=== PATIENT | male | born 1980 | race African-American/Black ===

== ENCOUNTER → 2017-04-23 | Outpatient (RCR) | payer MEDICAID | END | disposition still patient (30) | LOC: WSPT → MKS.ESL.PT 01-23 13:00 → WSPT 03-06 08:15 | DX: M70.61 Trochanteric bursitis, right hip (principal) ==

== ENCOUNTER → 2020-05-26 | Outpatient (CLI) | payer SELFPAY | LOC: COL.RAD 11:04 | DX: M25.551 Pain in right hip (principal); M25.562 Pain in left knee ==

== ENCOUNTER 2020-09-30 11:30 | Emergency (ER) | payer SELFPAY ==
[~2020-09-30] VITALS: Ht 177.8 cm; Wt 131.8 kg
[2020-09-30 11:45] VITALS: TEMP 98.1
[2020-09-30 12:59] LABS: BASO % 0.2 % (0.0-2.0); GRAN # 16.1 (1.4-6.5); GRAN % 89.3 % (42.2-75.2); HEMATOCRIT 41.7 % (42.0-52.0); HEMOGLOBIN 13.2 g/dl (13.5-18.0); LYMPH # 0.5 (1.2-3.4); LYMPH % 2.7 % (20.0-51.0); MEAN CELL VOLUME 91 fl (80.0-100.0); MEAN CORPUSCULAR HEMOGLOBIN 29 pg (27.0-31.0); MEAN CORPUSCULAR HGB CONC 32 g/dl (33.0-37.0); MEAN PLATELET VOLUME 9.8 fl (7.4-10.4); MONO # 1.3 (0.1-0.6); MONO % 7.5 % (1.7-9.3); PLATELET COUNT 259 K/mm3 (130-400); RED BLOOD COUNT 4.56 M/mm3 (4.20-5.60); REDCELL DISTRIBUTION WIDTH-CV 14.1 % (11.5-14.5)
[2020-09-30 13:17] LABS: ALBUMIN 4.4 gm/dL (3.5-5.0); BILIRUBIN,TOTAL 0.5 mg/dL (0.0-1.0); C-REACTIVE PROTEIN 0.8 mg/dL (0.0-0.9); CALCIUM 10.1 mg/dL (8.4-10.2); CREATININE, serum 1.48 (0.66-1.25); POTASSIUM 3.8 mmol/L (3.4-5.0); TOTAL PROTEIN 8.9 gm/dL (6.4-8.2)
[2020-09-30 14:26] LABS: COLLECTION METHOD CLEAN CATCH
[2020-09-30 14:37] LABS: MUCOUS Present /lpf; PH 6 (5-8); SQUAMOUS EPITHELIAL None Seen /hpf; URINE APPEARANCE Hazy; URINE BACTERIA None Seen /hpf; URINE BILIRUBIN Negative (NEGATIVE); URINE BLOOD 2+ (NEGATIVE); URINE COLOR Yellow; URINE GLUCOSE Negative (NEGATIVE); URINE KETONE Negative (NEGATIVE); URINE LEUKOCYTE ESTERASE 2+ (NEGATIVE); URINE NITRATE Negative (NEGATIVE); URINE PROTEIN(semi-quant) 1+ (NEGATIVE); URINE RBC 20-50 /hpf; URINE UROBILINOGEN Negative (NEGATIVE)
[2020-09-30] MEDS ORDERED: OMNICEF 300MG300 MG PO (15:45)
[2020-09-30] MEDS ORDERED: NORCO 325 MG-51 TAB PO (15:46)
[2020-09-30 15:51] VITALS: BP 159/59; PULSE 88
== END 2020-09-30 16:00 | disposition home or self-care (01) ==
LOC: COL.ER 11:30
PROVIDERS: Nurse Practitioner Primary Care
DX: N13.2 Hydronephrosis with renal and ureteral calculous obstruction (principal); F17.200 Nicotine dependence, unspecified, uncomplicated; Z20.822 Contact with and (suspected) exposure to COVID-19
CPT/HCPCS: J0696; J2270; J2405; J7030; Q9967